=== PATIENT | male | born 1970 | race Caucasian/White ===

== ENCOUNTER 2019-12-11 10:50 | Emergency (ER) | payer OTHER ==
[2019-12-11 11:02] VITALS: BMI 37.8
[2019-12-11] MEDS ORDERED: morphine CARPU-JECT 4 MG/1 ML DISP.SYRIN IVPUSH ONE (11:23)
[2019-12-11] MEDS ORDERED: ONDANSETRON 4 MG/2 ML VIAL IVPUSH ONE (11:23)
[2019-12-11] MEDS ORDERED: ACETAMINOPHEN 1000 MG/100 ML VIAL (NON FORMULARY) IVPB ONE (11:23)
[2019-12-11] MEDS ORDERED: LORATADINE 10 MG TABLET PO ONE (11:29)
[2019-12-11] MEDS ORDERED: MECLIZINE HCL 25 MG TABLET (FP) PO ONE (11:29)
[2019-12-11] MEDS ORDERED: SODIUM CHLORIDE 0.9% 500 ML INFUS.BAG IV ONE (11:31)
--- NOTE | 2019-12-11 11:31 | PDOC ---
History of Present Illness - General Chief Complaint: Pain Stated Complaint: ABDOMINAL PAIN Time Seen by Provider: 12/11/19 11:12 - History of Present Illness Initial Comments: The pt is a 49M w/ no reported PMH who presents for evaluation of RUQ abdominal pain since 299 today. He reports the pain is achy/sharp, constant, non- radiating, is worse with touch, and not alleviated by anything he can identify. He endorses associated nausea, denies vomiting. The pt also reports a history of vertigo and states he has acute onset vertigo that started this morning, is worse with movement and he has not tried taking anything for his symptoms today. 12/11/19 11:28 Past History - Past Medical History Allergies/Adverse Reactions: Allergies Allergy/AdvReac Type Severity Reaction Status Date / Time No Known Allergies Allergy Verified 12/11/19 11:02 Home Medications: Ambulatory Orders Amox-Tr/K Cl [Augmentin - 875Mg Tablet] 1 tab PO BID #14 tablet 12/11/19 Meclizine HCl [Antivert -] 25 mg PO TID PRN #21 tablet 12/11/19 CVA: No (Vertigo) COPD: No - Psycho Social/Smoking Cessation Hx Smoking History: Current some day smoker Information on smoking cessation initiated: No Hx Alcohol Use: Yes (occasional) Drug/Substance Use Hx: No Review of Systems - Review of Systems Able to Perform ROS?: Yes Comments:: GENERAL/CONSTITUTIONAL: No fever or chills. No weakness HEAD, EYES, EARS, NOSE AND THROAT: No change in vision. No change in hearing. No sore throat CARDIOVASCULAR: No chest pain or shortness of breath RESPIRATORY: Denies cough, hemoptysis GASTROINTESTINAL: +nausea; diarrhea or constipation GENITOURINARY: No dysuria, frequency, or change in urination MUSCULOSKELETAL: No joint or muscle swelling or pain. No neck or back pain SKIN: No rash NEUROLOGIC: No headache, vertigo, loss of consciousness, or change in strength/ sensation ENDOCRINE: No increased thirst. No abnormal weight change HEMATOLOGIC/LYMPHATIC: No anemia, easy bleeding, or history of blood clots ALLERGIC/IMMUNOLOGIC: No hives or skin allergy 12/11/19 12:16 Is the patient limited Albanian proficient: No *Physical Exam - Vital Signs Last Vital Signs Temp Pulse Resp BP Pulse Ox 97.5 F L 77 16 140/84 100 12/11/19 10:56 12/11/19 10:56 12/11/19 10:56 12/11/19 10:56 12/11/19 10:56 - Physical Exam GENERAL: Awake, alert, and oriented to person/place/time, in no acute distress HEAD: No signs of trauma, normocephalic, atraumatic EYES: PERRLA, EOMI, sclera anicteric, conjunctiva clear ENT: Hearing grossly normal, nares patent, oropharynx clear without exudates. Moist mucosa LUNGS: No distress, speaks in full sentences, clear to auscultation bilaterally HEART: Regular rate and rhythm, normal S1 and S2, no murmurs appreciated, peripheral pulses normal and equal bilaterally ABDOMEN: Soft, epigastric/RUQ TTP w/o rebound or guarding, no CVA TTP, normoactive bowel sounds EXTREMITIES: Normal inspection, Normal range of motion, no edema. No clubbing or cyanosis NEUROLOGICAL: Cranial nerves II through XII grossly intact. Normal speech, normal gait, no focal sensorimotor deficits SKIN: Warm, Dry 12/11/19 12:18 ED Treatment Course - LABORATORY CBC & Chemistry Diagram: 12/11/19 11:23 12/11/19 11:23 - RADIOLOGY Radiology Studies Ordered: Category Date Time Status ABDOMEN US -LIMITED [US] Stat Ultrasound 12/11/19 11:20 Ordered Radiograph Interpretation: US/ABDOMEN US -LIMITED. Real time examination of the abdomen demonstrates the following: There is a large gallstone within a somewhat contracted and thick-walled gallbladder. The possibility of acute process cannot be excluded and a follow- up HIDA scan is recommended, if clinically indicated. There is no evidence of intra or extrahepatic biliary duct dilatation. The liver is enlarged measuring 19.5 cm in craniocaudad dimension. It is hyperechoic in texture consistent with diffuse fatty infiltration. No discrete intrahepatic masses are identified. Hepatopedal flow is documented within the main portal vein. The pancreas is not well visualized due to overlying bowel gas. There is no evidence of hydronephrosis or acute abnormalities of the right kidney. There is no evidence of AAA. The IVC is patent. IMPRESSION: 1. Cholelithiasis. If acute cholecystitis is suspected, a follow-up HIDA scan is recommended. 2. Hepatomegaly with diffuse fatty infiltration of the liver. 12/11/19 14:01 Medical Decision Making - Medical Decision Making The pt is a 49M w/ no reported PMH who presents for evaluation of RUQ abdominal pain and vertigo since 0300 today. ED Course Labs sent RUQ US ECG Ofirmev, Zofran, Meclizine, Claritin, IVF for symptomatic relief WBC 11.2, pt afebrile, non-tacycardic No anemia Lytes wnl No SAMMIE Trop I neg ALT 235, remainder of LFTs wnl Lipase wnl 12/11/19 12:41 Case discussed w/ Dr. Tovar, not indication for urgent surgery at this time Pt tolerating PO in ED Rx for abx (augmentin) and Meclizine sent to pt's pharmacy Plan for D/C w/ PCP and GI f/u Discharge instructions and return precautions given Patient in agreement and verbalized understanding Dispo: Home Discharge - Discharge Information Problems reviewed: Yes Clinical Impression/Diagnosis: Abdominal pain Qualifiers: Abdominal location: epigastric Qualified Code(s): R10.13 - Epigastric pain Condition: Stable Disposition: HOME - Admission No - Additional Discharge Information Prescriptions: Amox-Tr/K Cl [Augmentin - 875Mg Tablet] 1 tab PO BID #14 tablet Meclizine HCl [Antivert -] 25 mg PO TID PRN #21 tablet PRN Reason: Vertigo - Follow up/Referral Referrals: Max Longoria MD [Primary Care Provider] - Concha Garcia MD [Staff Physician] - Bud Hunter MD [Staff Physician] - - Patient Discharge Instructions Patient Printed Discharge Instructions: DI for Gallstones, DI for Abdominal Pain-Adult Additional Instructions: You were seen in the Emergency Department for evaluation of abdominal pain and vertigo. Your ALT (liver enzyme) was 235. A copy of your labs and imaging read was provided. Review the handouts provided at discharge. Follow up with your primary care provider this week. A referral for gastroenterology was provided, please follow up with them this week. Return to the Emergency Department if you develop fevers, chest pain, trouble breathing, worsening pain, change in sensation, worsening symptoms, or any new/ concerning symptoms. - Post Discharge Activity Work/Back to School Note: Back to Work
[2019-12-11] MEDS ORDERED: FAMOTIDINE 20 MG TABLET PO ONE (11:32)
[2019-12-11] MEDS ORDERED: MAG HYDROX/AL HYDROX/SIMETH -MYLANTA- ORAL SUSPENSION PO ONE (11:32)
--- NOTE | 2019-12-11 11:36 | PDOC ---
Attending Attestation - Resident Resident Name: AnicetoaliceAsad - ED Attending Attestation I have performed the following: I have examined & evaluated the patient, The case was reviewed & discussed with the resident, I agree w/resident's findings & plan, Exceptions are as noted - HPI HPI: 12/11/19 12:56 Mr Redd is a 49 yo M who presents to the ER with a complaint of abdominal pain Pt has had 2 months of RUQ pain (intermittent) Currently, pt has epigastric pain He had multiple episodes of non bloody, non bilious emesis no fevers or chills 12/11/19 12:59 - Physicial Exam PE: 12/11/19 11:36 GENERAL: The patient is in no acute distress. ENT: Ears normal, nares patent, oropharynx clear without exudates. Moist mucous membranes. NECK: Normal range of motion, supple LUNGS: Breath sounds equal, clear to auscultation bilaterally. No wheezes, and no crackles. HEART:Regular rate and rhythm, normal S1 and S2 without murmur, rub or gallop. ABDOMEN: Soft, epigastric and ruq tenderness EXTREMITIES: Normal range of motion, no edema. NEUROLOGICAL: Cranial nerves II through XII grossly intact. Normal speech. No focal neurological deficits. SKIN: Warm, Dry, normal turgor, no rashes or lesions noted. 12/11/19 12:59 - Medical Decision Making 12/11/19 12:59 Will do: Labs, EKG Analgesia antiemetics EKG: Twelve-lead EKG was performed and reviewed by me. There is normal sinus rhythm with a normal rate. The axis is normal. The intervals are normal. There are no ST or T wave abnormalities. Impression: Normal twelve-lead EKG Laboratory Tests 12/11/19 12/11/19 11:23 11:23 WBC 11.2 H Hgb 14.5 Hct 44.0 Plt Count 244 Neutrophils % 87.3 H BUN 18.0 Creatinine 1.1 Troponin I < 0.02 12/11/19 13:00 12/12/19 13:34 US: Cholelithiasis, gb contracted with thickened wall Call placed to surgical consult He has seen this patient in the ER Does not think this is a surgical issue Would discharge to home with follow up
[2019-12-11] MEDS ORDERED: morphine SULFATE 4 MG/ML VIAL ONE (11:37)
[2019-12-11] MEDS ORDERED: MECLIZINE HCL 25 MG TABLET (FP) ONE (11:37)
[2019-12-11] MEDS ORDERED: ONDANSETRON 4 MG/2 ML VIAL ONE (11:38)
[2019-12-11] MEDS ORDERED: ACETAMINOPHEN INJECTION 100 ML IVPB ONE (11:38)
[2019-12-11] MEDS ORDERED: MAG HYDROX/AL HYDROX/SIMETH 30 ML UNIT-DOSE CUP ONE (11:38)
[2019-12-11] MEDS ORDERED: LORATADINE 10 MG TABLET ONE (11:38)
[2019-12-11] MEDS ORDERED: FAMOTIDINE 20 MG/50 ML IVPB 20 MG/50 ML MG IVPB ONE (11:38)
[2019-12-11 11:43] LABS: BASO % 0.3 % (0-2.0); EOS % 0.3 % (0-4.5); HEMOGLOBIN 14.5 GM/dL (11.7-16.9); LYMPH % 8.5 % (8-40); MCH 27.8 pg (25.7-33.7); MCHC 32.9 g/dl (32.0-35.9); MEAN CELL VOLUME 84.3 fl (80-96); MEAN PLT VOLUME 7.7 fl (7.5-11.1); MONO % 3.6 % (3.8-10.2); NEUT % 87.3 % (42.8-82.8); PLATELET COUNT 244 K/MM3 (134-434); RBC 5.22 M/mm3 (4.00-5.60); RDW 14.6 % (11.9-15.9); WHITE BLOOD COUNT 11.2 K/mm3 (4.0-10.0)
[2019-12-11 11:58] VITALS: TEMP 98
[2019-12-11 12:13] LABS: ALBUMIN 4.1 g/dl (3.4-5.0); ALK PHOS 96 U/L (45-117); ANION GAP 7 MMOL/L (8-16); BILIRUBIN,TOTAL 0.5 mg/dL (0.2-1); CALCIUM 9.4 mg/dL (8.5-10.1); CHLORIDE 106 mmol/L (98-107); CO2 28 mmol/L (21-32); CREATININE 1.1 mg/dL (0.55-1.3); GLUCOSE,RANDOM 133 mg/dL (74-106); POTASSIUM 4.6 mmol/L (3.5-5.1); SGOT/AST 35 U/L (15-37); SGPT/ALT 235 U/L (13-61); SODIUM 141 mmol/L (136-145); TOT PROT 7.4 g/dl (6.4-8.2)
[2019-12-11 15:37] VITALS: BP 137/74; PULSE 81
--- NOTE | 2019-12-12 09:18 | EKG ---
Test Reason : Blood Pressure : / mmHG Vent. Rate : 086 BPM Atrial Rate : 086 BPM P-R Int : 170 ms QRS Dur : 090 ms QT Int : 378 ms P-R-T Axes : 049 018 000 degrees QTc Int : 452 ms NORMAL SINUS RHYTHM POSSIBLE LEFT ATRIAL ENLARGEMENT BORDERLINE ECG NO PREVIOUS ECGS AVAILABLE Confirmed by RAY VALDEZ MD ([id number]) on 12/12/2019 9:18:14 AM Referred By: Confirmed By:RAY VALDEZ MD
== END 2019-12-11 15:37 | disposition home or self-care (01) ==
LOC: JER 10:50
PROC: 3E033NZ Introduction of Analgesics, Hypnotics, Sedatives into Peripheral Vein, Percutaneous Approach (ICD-10-PCS; principal; 2019-12-11)
PROC: 3E033NZ Introduction of Analgesics, Hypnotics, Sedatives into Peripheral Vein, Percutaneous Approach (ICD-10-PCS; 2019-12-11)
PROC: 3E033GC Introduction of Other Therapeutic Substance into Peripheral Vein, Percutaneous Approach (ICD-10-PCS; 2019-12-11)
DX: K80.20 Calculus of gallbladder without cholecystitis without obstruction (principal); R42 Dizziness and giddiness; F17.210 Nicotine dependence, cigarettes, uncomplicated
CPT/HCPCS: 36415; 76705-TC; 80053; 83690; 84484; 85025; 93005; 93010; 99283-25; J0131